=== PATIENT | female | born 1990 | race Caucasian/White ===

== ENCOUNTER 2025-05-26 22:18 | Emergency (ER) | payer OTHER ==
[~2025-05-26] VITALS: Ht 154.9 cm; Wt 78.0 kg
[2025-05-26 22:21] VITALS: BP 141/110; PULSE 103; RESP 24; TEMP 97.8; O2SAT 96
[2025-05-26] MEDS ORDERED: SOLU-MEDROL IM STA (22:33)
[2025-05-26] MEDS ORDERED: DUONEB 0.5-3(2.5) MG/3 ML IH ONE (22:35)
[2025-05-26 22:41] VITALS: PULSE 87; RESP 20; O2SAT 99
[2025-05-26] MEDS: DUONEB 0.5-3(2.5) MG/3 ML IH STA (22:42)
[2025-05-26] MEDS ORDERED: SOLU-MEDROL ONE (22:45)
[2025-05-26 22:52] LABS: +ADD MANUAL DIFF(NO CHRG) NO; BASOPHIL # 0.1 10^3/uL (0.0-0.1); BASOPHIL % 0.8 % (0.1-1.2); EOSINOPHIL # 0.5 10^3/uL (0.0-0.2); EOSINOPHIL % 6.9 % (0.0-5.0); HEMOGLOBIN 13.2 g/dL (12.0-15.0); LYMPHOCYTES # 2.59 10^3/uL1 (1.0-4.8); LYMPHOCYTES % 35.7 % (24.0-44.0); MEAN CORP HGB 26.8 pg (26-34); MEAN CORP HGB CONCENTRATION 32.2 g/dL (33-36.5); MEAN CORP VOLUME 83.2 fL (78-100); MONOCYTES # 0.6 10^3/uL (0.3-0.8); NEUTROPHIL # 3.5 10^3/uL (1.8-7.7); NEUTROPHILS % 48.5 % (41.0-85.0); PLATELET COUNT 319 10^3/uL (150-400); RED BLOOD CELL 4.93 10^6/uL (4.00-5.20); RED CELL DISTRIBUTION WIDTH 14.3 % (11.5-14.5); WHITE BLOOD CELL 7.3 10^3/uL (4.5-11.0)
[2025-05-26] MEDS: SOLU-MEDROL IV STA (22:53)
[2025-05-26 22:55] VITALS: PULSE 96; RESP 18; O2SAT 99
[2025-05-26 23:10] LABS: INR 0.9; PROTHROMBIN PROTIME 9.3 SEC (9.3-11.6)
[2025-05-26 23:15] LABS: ALANINE AMINOTRANSFERASE(ML) 36 U/L (12-78); ALBUMIN(ML) 3.3 g/dL (3.4-5.0); ALBUMIN/GLOBULIN RATIO 1.222; ALKALINE PHOSPHATASE 28 U/L (50-136); ANION GAP 13.6; ASPARTATE AMINO TRANSFERASE 25 U/L (0-35); CALCIUM 8.9 mg/dL (8.4-10.5); CARBON DIOXIDE 25.1 mmol/L (20.0-32); CREATININE SERUM 1.04 mg/dL (0.59-1.40); GLUCOSE 83 mg/dL (74-106); POTASSIUM 3.7 mmol/L (3.6-5.2); SODIUM 141 mmol/L (132-145)
[2025-05-26 23:22] VITALS: BP 134/91; PULSE 91; RESP 20; TEMP 97.8; O2SAT 99
[2025-05-26 23:43] LABS: TROPONIN I HIGH SENSITIVITY < 4 ng/L (0-50)
[2025-05-26 23:56] VITALS: BP 117/63; PULSE 90; RESP 20; TEMP 97.8; O2SAT 99
== END 2025-05-27 00:01 | disposition home or self-care (01) ==
LOC: ER 22:18
DX: J45.901 Unspecified asthma with (acute) exacerbation (principal)
CPT/HCPCS: 99285; 96374; 71045; 80053; 85025; 36415; 85379; 84484; 83880; 85610; 85730; 84703; 93005; 94640; J2919; J2930